=== PATIENT | male | born 1945 | race Caucasian/White ===

== ENCOUNTER 2022-06-04 10:09 | Outpatient (CLI) | payer MEDICARE, SELFPAY ==
[2022-06-04 12:51] LABS: Cholesterol* 184 mg/dL (90-199); HDL Cholesterol* 59 mg/dL (>=40); LDL Cholesterol Calculated 114 mg/dL (<100); Triglycerides* 56 mg/dL (40-149)
[2022-06-04 13:19] LABS: PSA Diagnostic* 4.58 ng/mL (0.10-4.00)
== END 2022-06-04 10:10 | disposition home or self-care (01) ==
PROVIDERS: PCP Family Medicine; Visit Provider Family Medicine
DX: C61 Malignant neoplasm of prostate (principal); Z13.6 Encounter for screening for cardiovascular disorders
CPT/HCPCS: 80061; 84153

== ENCOUNTER 2023-05-30 10:33 | Outpatient (CLI) | payer MEDICARE, SELFPAY | END 2023-05-30 10:34 | disposition home or self-care (01) | PROVIDERS: PCP Family Medicine; Visit Provider Family Medicine | DX: C61 Malignant neoplasm of prostate (principal); L98.9 Disorder of the skin and subcutaneous tissue, unspecified | CPT/HCPCS: 80048; 84153 ==

== ENCOUNTER 2024-06-05 09:44 | Outpatient (CLI) | payer MEDICARE, SELFPAY | END 2024-06-05 09:45 | disposition home or self-care (01) | PROVIDERS: PCP Family Medicine; Visit Provider Family Medicine | DX: C61 Malignant neoplasm of prostate (principal); M16.12 Unilateral primary osteoarthritis, left hip | CPT/HCPCS: 80053; 84153 ==

== ENCOUNTER 2025-02-14 09:13 | Outpatient (CLI) | payer MEDICARE, SELFPAY | END 2025-02-14 09:14 | disposition home or self-care (01) | LOC: NFLDREF 02-19 12:39 | PROVIDERS: PCP Family Medicine; Referring Provider Family Medicine; Visit Provider Family Medicine | DX: R74.8 Abnormal levels of other serum enzymes (principal); C61 Malignant neoplasm of prostate | CPT/HCPCS: 80076; 84153 ==

== ENCOUNTER 2025-06-11 09:55 | Outpatient (CLI) | payer MEDICARE, SELFPAY | END 2025-06-11 09:56 | disposition home or self-care (01) | PROVIDERS: PCP Family Medicine; Visit Provider Family Medicine | DX: C61 Malignant neoplasm of prostate (principal); Z13.1 Encounter for screening for diabetes mellitus; Z98.41 Cataract extraction status, right eye; Z98.42 Cataract extraction status, left eye | CPT/HCPCS: 80048; 84153 ==